=== PATIENT | male | born 1990 | race Caucasian/White ===

== ENCOUNTER 2018-01-19 23:55 | Emergency (ER) | payer MEDICARE, MEDICAID ==
--- NOTE | 2018-01-20 00:26 | EDM.PDOC ---
ED HPI GENERAL MEDICAL PROBLEM - General Chief Complaint: Eye Problems Stated Complaint: LT EYE INJURY Time Seen by Provider: 01/20/18 00:05 Source of Information: Reports: Patient History Limitations: Reports: No Limitations - History of Present Illness INITIAL COMMENTS - FREE TEXT/NARRATIVE: Nitin was cleaning a smoking pipe when some ranulfo inadvertantly spread into the L eye. There was immediate eye irritation and photophobia as he tried to remove debris manually. Flushing was not successful as he still has a foreign body sensation. The R eye is asx. He has tried no meds. ED ROS GENERAL - Review of Systems Review Of Systems: ROS reveals no pertinent complaints other than HPI. ED EXAM GENERAL W FULL EYE - Physical Exam Exam: See Below Exam Limited By: No Limitations General Appearance: Alert, WD/WN, Mild Distress Eye Exam: Right Eye: Normal Inspection, Left Eye: Conjunctival Injection ( horizontal defect lower aspect), Corneal Abrasion (horizontal defect lower cornea), Bilateral Eye: EOMI, Normal Fundi, PERRL Visual Acuity (R) 20/: 20 Visual Acuity (L) 20/: 30 With Correction: No Eyelids: Right: Normal Appearance, Left: Edema, Erythema, Bilateral: Lid Everted for Exam Conjunctiva & Sclera: Right: Normal Appearance, Left: Conjunctival Edema, Injected Cornea Exam: Right: Normal Appearance, Left: Corneal Abrasion Extraocular Movements: Bilateral: Intact Pupils: Normal Accommodation Pupillary Size: Bilateral: 3 mm Pupillary Reaction: Bilateral: Brisk Anterior Chamber: Bilateral: Normal Appearance Posterior Chamber: Bilateral: Normal Funduscopic Ears: Normal External Exam Nose: Normal Inspection Throat/Mouth: Normal Oropharynx, Other (poor dental hygiene with multiple caries ) Head: Normocephalic Neck: Normal Inspection Respiratory/Chest: Lungs Clear, Normal Breath Sounds Cardiovascular: Regular Rate, Rhythm, No Murmur Back Exam: Normal Inspection Extremities: Normal Inspection Neurological: Alert, Oriented, CN II-XII Intact, Normal Cognition, Normal Gait, No Motor/Sensory Deficits Psychiatric: Normal Affect, Anxious Skin Exam: Warm, Dry Lymphatic: No Adenopathy Course - Vital Signs Text/Narrative:: L eye exam noted a horizontal abrasion overlying the inferior aspect of cornea and adjacent conjunctiva. No fb seen. Garamycin oph oint and patch applied. Patient tolerated procedure well. Departure - Departure Time of Disposition: 00:28 Disposition: Home, Self-Care 01 Condition: Fair Clinical Impression: Injury of left conjunctiva and corneal abrasion Qualifiers: Encounter type: initial encounter Qualified Code(s): S05.02XA - Injury of conjunctiva and corneal abrasion without foreign body, left eye, initial encounter - Discharge Information *PRESCRIPTION DRUG MONITORING PROGRAM REVIEWED*: Not Applicable *COPY OF PRESCRIPTION DRUG MONITORING REPORT IN PATIENT VINICIO: Not Applicable Referrals: Tarsha Bright SINGLE NEEDLE OPERATOR [Primary Care Provider] - - Problem List & Annotations (1) Injury of left conjunctiva and corneal abrasion SNOMED Code(s): 497265642, [id number] Code(s): S05.02XA - INJ CONJUNCTIVA AND CORNEAL ABRASION W/O FB, LEFT EYE, INIT Status: Acute Annotation/Comment:: I suggested opth or optometric exam tomorrow, keep eye patch in place. Qualifiers: Encounter type: initial encounter Qualified Code(s): S05.02XA - Injury of conjunctiva and corneal abrasion without foreign body, left eye, initial encounter - Problem List Review Problem List Initiated/Reviewed/Updated: Yes - Assessment/Plan Plan: Follow up with senior information security engineer or optemetrist in the am.
== END 2018-01-20 00:45 | disposition home or self-care (01) ==
LOC: FB.ED 23:55
DX: S05.02XA Injury of conjunctiva and corneal abrasion without foreign body, left eye, initial encounter (principal); X58.XXXA Exposure to other specified factors, initial encounter
CPT/HCPCS: 99283

== ENCOUNTER 2020-10-07 20:10 | Emergency (ER) | payer MEDICARE, MEDICAID, OTHER ==
[2020-10-07] MEDS ORDERED: Amoxicillin/Clavulanate K 875-125 MG Tab PO ONE (20:11)
[2020-10-07] MEDS ORDERED: Diphtheria,Pertussis(Acell),Tetanus Vaccine 0.5 ML Syringe IM ONE (20:19)
[2020-10-07] MEDS ORDERED: Mupirocin Oint 22 GM Tube TOP ONE (20:24)
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
[2020-10-07] MEDS ORDERED: Bacitracin Oint 1 GM U/D Packet TOP ONE (21:02)
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
== END 2020-10-07 22:20 | disposition home or self-care (01) ==
LOC: FB.ED 20:10
DX: S02.92XA Unspecified fracture of facial bones, initial encounter for closed fracture (principal); S60.221A Contusion of right hand, initial encounter; S00.81XA Abrasion of other part of head, initial encounter; J32.0 Chronic maxillary sinusitis; K02.9 Dental caries, unspecified; Z91.048 Other nonmedicinal substance allergy status; Z23 Encounter for immunization; V19.9XXA Pedal cyclist (driver) (passenger) injured in unspecified traffic accident, initial encounter
CPT/HCPCS: 36415; 70450; 73130; 80053; 85025; 86140; 90471; 90715; 99284; A9270